=== PATIENT | female | born 1985 | race Two or more races ===

== ENCOUNTER → 2024-04-21 | Outpatient (CLI) | payer MEDICAID, SELFPAY ==
--- NOTE | 2024-04-21 15:00 | XR_ITS ---
Examination: MRI brain without intravenous contrast. Date and time of exam: April 21, 2024 at 1529 hours INDICATIONS: Daily syncopal episodes beginning November 16, 2023 dizziness paresthesias numbness in the head 5 months Technique: Multiple axial and sagittal images of the brain obtained. Siemens high-resolution 1.5 Gracie short bore scanners utilized. Sagittal sections, T1-weighted, TR 500, TE 14, are performed. Axial sections proton-density and T2-weighted have been obtained. Inversion recovery axial images, TR 9, 260, TE 111, TI 2500. Diffusion weighted images, axial sections, TR 4800, TE 128, B value 1000 Axial sections, ADC map, TR 4800, TE 128 Findings: Enlargement of the sella turcica is not present. The optic chiasm and infundibular are not remarkable. Prepontine and interpeduncular cisterns are not enlarged. There is no localized enlargement of the medulla or luke. Fourth ventricle and cerebellar tonsils appear normal in position. No subacute area of hemorrhage density is seen. Mass in the cerebellopontine angle region is not evident. Globes symmetrical. Orbital musculature including medial lateral rectus muscles do not exhibit abnormality. Diffusion-weighted images demonstrate no focus of restricted diffusion. Increased white matter signal 2 punctate foci increased signal in the right frontal parietal white matter and 1 day focus increased signal in the posterior left parietal white matter FLAIR image 16 Mass effect upon the ventricular system is not identified. Impression: Scattered punctate foci increased signal in the white matter, demyelinating disease pattern
== END | disposition home or self-care (01) ==
LOC: SMRI 14:36
PROVIDERS: PCP Internal Medicine; Referring Provider Internal Medicine; Visit Provider Internal Medicine
DX: R90.82 White matter disease, unspecified (principal)
CPT/HCPCS: 70551

== ENCOUNTER 2024-05-18 04:18 | Emergency (ER) | payer MEDICAID, SELFPAY ==
[2024-05-18 04:19] VITALS: BMI 28.3
--- NOTE | 2024-05-18 04:24 | EKG_ITS ---
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
--- NOTE | 2024-05-18 04:30 | PD.EDRME ---
Rapid Medical Screening Exam RME Arrival date/time: 05/18/24 04:18 Chief Complaint: General Adult/Misc Complain RME Narrative: 38yo female presents to the ED for complaints of palpitations and shortness of breath. Patient states she woke up having palpitations at 0340. She denies any dizziness, lightheadedness, chest pain, numbness, tingling, vision changes or any other associated symptoms.
[2024-05-18 04:32] VITALS: BP 103/80; PULSE 62; RESP 16; TEMP 36.7; O2SAT 99
--- NOTE | 2024-05-18 04:39 | PC.NURSE ---
Pt from home c/o awakening at 0340 with SOB, headache, and palpitations. Pt feels as though she is having a stroke. No hx of strokes. Pt states she is being worked up outpatient for MS.
[2024-05-18 05:17] LABS: Basophils % (Auto) 1 % (0-2.5); Eosinophils % (Auto) 1 % (0-10); Hematocrit 40.7 % (36.0-46.0); Hemoglobin 14.8 g/dL (12.0-16.0); Immature Granulocytes % (Auto) 0 % (0-0); Immature Granulocytes Auto 0.02 Thou/mm3 (0.00-0.00); Lymphocytes % (Auto) 37 % (10-50); Mean Corpuscular HGB Conc 36.4 g/dl (31.0-37.0); Mean Corpuscular Hemoglobin 32.5 pg (25.0-35.0); Mean Corpuscular Volume 90 fL (80-100); Monocytes # (Auto) 0.6 Thou/mm3 (0.0-0.8); Monocytes % (Auto) 11 % (0-12); Neutrophils # (Auto) 2.7 Thou/mm3 (1.8-7.7); Neutrophils % (Auto) 50 % (37-80); Nucleated Red Blood Cell % 0 /100 WBC (0); Platelet Count 247 Thou/mm3 (140-440); RDW Standard Deviation 38.6 fL (36.4-46.3); Red Blood Count 4.55 Miln/mm3 (4.00-5.20); White Blood Count 5.3 Thou/mm3 (3.6-11.0)
[2024-05-18 05:34] LABS: D-Dimer < 250 ng/mL (<600)
[2024-05-18 05:57] LABS: Alanine Aminotransferase 13 U/L (10-49); Albumin, Serum 5.1 gm/dL (3.5-5.0); Alkaline Phosphatase 74 U/L (46-116); Anion Gap 10 (7-16); Aspartate Amino Transferase 17 U/L (0-34); BUN/Creatinine Ratio 10 Ratio (12-20); Bilirubin,Total 0.7 mg/dL (0.3-1.2); Blood Urea Nitrogen 7 mg/dL (9-23); Calcium 9.9 mg/dL (8.3-10.6); Calcium (Corrected) 9.9 mg/dL (8.5-10.1); Chloride 103 mMol/L (98-107); Creatinine (Component) 0.7 mg/dL (0.6-1.3); Estimated Creatinine Clearance 94.3 mL/min (>60); Globulin 2.6 gm/dL (2.3-3.5); Glucose 90 mg/dL (74-106); Magnesium 2.1 mg/dL (1.6-2.6); Osmolality,Calculated 273 (275-295); Potassium 3.5 mMol/L (3.4-5.1); Sodium 138 mMol/L (136-145); Total Protein 7.7 gm/dL (5.7-8.2); Troponin I < 0.002 ng/mL (0.0-0.045); eGFR > 60 See Note
[2024-05-18 06:18] VITALS: BP 96/66; PULSE 61; RESP 17; TEMP 36.9; O2SAT 98
[2024-05-18 06:26] LABS: Collection Type, Urine Voided
[2024-05-18 06:44] LABS: Bilirubin,Urine Negative (Negative); Blood,Urine Negative (Negative); Clarity,Urine Clear (Clear/Hazy); Color,Urine Lt-Yellow (Lt Yel-Yel); Glucose, Urine Negative (Negative); Ketones,Urine 3+ (Negative); Leukocyte Esterase,Urine Negative (Negative); Nitrite,Urine Negative (Negative); Protein,Urine Negative (Neg - Trace); RBC,Urine 1 /hpf (0-3); Specific Gravity,Urine 1.013 (1.001-1.035); Squamous Epithelial Cell,Urine 8 /hpf (0-5); Urobilinogen,Urine Negative mg/dL (0.0-1.0); WBC,Urine 1 /hpf (0-5)
[2024-05-18 06:56] LABS: Amphetamine/Methamp Scrn,U Negative (Negative); Barbiturate Screen,Urine Negative (Negative); Benzodiazepines Screen,Urine Negative (Negative); Benzoylecgonine Screen, Ur Negative (Negative); Fentanyl Screen,Urine Negative (Negative); Opiate Screen,Urine Negative (Negative); THC Screen,Urine Negative (Negative)
[2024-05-18 08:16] VITALS: BP 105/67; PULSE 74; RESP 19; TEMP 36.9; O2SAT 98
--- NOTE | 2024-05-18 08:16 | PC.NURSE ---
Pt. here from home laying in bed in room 9, pt. states she feels better and all her symptoms that she felt this morning at home are gone, pt. states her heart beats fast sometimes and she is being tested for MS by her primary Doctor. Pt. asking for MS medication because she states her [facility] won't give it to her. Pt. denies any pain or SOB at this time. No s/s of distress.
--- NOTE | 2024-05-18 08:59 | EDNOTE_ITS ---
ED Arrhythmia Palp. RME/HPI General Chief Complaint: General Adult/Misc Complain Stated Complaint: POSS STROKE Time Seen by Provider: 05/18/24 05:03 Arrival date/time: 05/18/24 04:18 RME / HPI RME / HPI narrative: 38yo female presents to the ED for complaints of palpitations and shortness of breath. Patient states she woke up having palpitations at 0340. She denies any dizziness, lightheadedness, chest pain, numbness, tingling, vision changes or any other associated symptoms. DR. DENAE PAGAN ED EVALUATION 38 year old female presents to the ED for evaluation of shortness of breath and palpitations beginning at 03:00 am today. States she woke up from sleep due to my heart was beating hard and during that time noted to feel short of breath. Additionally reported she felt her hearing was muffled and vision was blurry. Denied any LOC. Denies recent illness, fevers, chills, chest pain, cough, abdominal pain, n/v/d, or urinary symptoms. Denies any change in oral intake. [facility] 05/04/2024 Related Data Home Medications ?Medication ?Instructions ?Recorded ?Confirmed cholecalciferol (vitamin D3) 50 50 mcg PO QDAY 01/15/24 01/15/24 mcg (2,000 unit) capsule Allergies Allergy/AdvReac Type Severity Reaction Status Date / Time No Known Allergies Allergy Verified 01/16/24 08:07 Review of Systems Review of Systems Narrative Review of Systems: GEN: No fever, no chills, no weight loss EYES: No discharge, +blurred vision, no pain HEENT: +muffled hearing. No ear pain, no congestion, no sore throat PULM: +shortness of breath, no cough, no congestion CV: No chest pain, no dyspnea on exertion, +palpitations GI: No nausea, no vomiting, no diarrhea, no pain, no constipation : No frequency, no urgency and no dysuria MUSC/SKEL No joint pain, no back pain SKIN: No rash NEURO: No weakness, no headache Past Medical History Past Medical History NEUROLOGIC: Negative Neurological Disorders CARDIAC: Positive Cardiac Disorders and Hypercholesterolemia GASTROINTESTINAL: Positive Gastrointestinal Disorders, Gastrointestinal Bleed and Hemorrhoids GENITOURINARY: Negative Genitourinary Disorders or Renal Disease MUSCULOSKELETAL: Positive Musculoskeletal Disorders ENDOCRINE: Negative Endocrine Disorders HEMATOLOGIC: Negative Blood Disorders OTHER HISTORY: Positive Chicken Pox Surgical History SURGICAL: Positive Tubal Ligation and Section Social History SMOKING STATUS: Never smoker SUBSTANCE USE: does not use ED Exam Narrative Physical exam: GENERAL APPEARANCE: Well hydrated, well nourished, in no acute distress. VITALS: All vitals were reviewed and the pulse ox is 98% on room air which is normal according to my interpretation. HEENT: Normocephalic, atramatic, EOMI, EACs are patent. There is no bulge or retraction. Throat without erythema or exudate. Moist oromucosa. No jaundice NECK: Supple, no JVD or bruits. CARDIOVASCULAR: Heart regular without S3-S4 or murmur. No rubs or gallops. LUNGS/CHEST: Clear to auscultation bilaterally. No rales, rhonchi, or wheezing. Normal inspection. ABDOMEN: Soft, nontender, with normal bowel sounds. No pulsatile masses. No rebound, rigidity, or guarding. No incarcerated hernia. Normal inspection and palpation. EXTREMITIES: Normal inspection and palpation. No edema, clubbing, or cyanosis. Intact CSM SKIN: Warm and dry without rashes. Normal inspection. MUSCULOSKELETAL: Normal inspection. No gross deformity, full ROM all extremities NEURO: Alert and oriented x3. Cranial nerves II through XII grossly intact. There are no other motor or sensory deficits noted. PSYCHIATRIC: Normal mood and affect. No psychosis. Course Quality Measures none Orders Category Date Time Status EKG (ED ONLY) *Do not use* NOW Care 05/18/24 04:25 Completed Fingerstick [Bedside Blood Glucose] NOW Care 05/18/24 04:25 Active IV [Insert IV] STAT Care 05/18/24 04:30 Active EKG (ED Only) Stat Exams 05/18/24 04:24 Draft CBC Stat Lab 05/18/24 04:26 Completed CMP [Comprehensive Metabolic Panel] Stat Lab 05/18/24 04:26 Completed D-Dimer Stat Lab 05/18/24 04:26 Completed Drug Screen,Urine Stat Lab 05/18/24 06:21 Completed Mag [Magnesium] Stat Lab 05/18/24 04:26 Completed Troponin I Stat Lab 05/18/24 04:26 Completed Urinalysis Stat Lab 05/18/24 06:21 Completed Vital Signs Vital signs: Vital Signs Temperature 98.1 F 05/18/24 04:32 Pulse Rate 62 05/18/24 04:32 Respiratory Rate 16 05/18/24 04:32 Blood Pressure 103/80 05/18/24 04:32 Pulse Oximetry (%) 99 05/18/24 04:32 Oxygen Delivery Method Room Air 05/18/24 04:32 Arrhythmia/Palpitations MDM Narrative MDM Narrative:: Yisel Magallanes am scribing for and in the presence of Dr. Villegas. CBC is negative. CMP negative. Magnesium negative. Troponin negative. D- dimer negative. UA showing mild dehydration. U tox is negative. Twelve-lead EKG at 4:44 AM and interpreted by me: Sinus rhythm. Heart rate of 58. Normal axis. No ST elevation or depression. No PVC. No STEMI. Regular rate and rhythm. Patient neurological exam is normal. No neurological deficit. No focal finding. Speaking well. No facial droop. Therefore CT brain is not necessary. She did have a recent MRI of the brain that was done in April. Please see the report. According to the patient herself, she is to follow-up with a neurologist pending medical authorization Patient data External records reviewed:: [facility] previous records (I reviewed ED visit 01/16/2024) Clinical information provided by:: patient Social determinants that could affect healthcare access:: none Patient has the following chronic illnesses:: None reported How is presenting disease/condition affected by chronic disease/condition?: no chronic disease Evaluation data The following diagnostics were reviewed and interpreted by me:: lab results and EKG tracing(s) Lab and/or radiology exams considered but not ordered:: None Interpretation Summary: As noted above Medications / Prescriptions Medications or Prescriptions considered but not ordered:: None Medication administrations:: None Consultations Consultation(s) initiated? (list below): No Diagnosis Most likely diagnosis given after review of the tests above:: Palpitation Admission Indicated Admission indicated?: not indicated Admission Request Was there a request for admission?: No Disposition Plan Disposition Plan: Discharge Discharge Attestation Discharge Attestation: The patient and all family members were given an opportunity to ask questions and understood the discharge instructions. Discharge instructions specifically effects, indications for sooner follow up or return to the emergency department, and the expected course of current diagnosis. Patient condition: Stable Discharge Plan Plan Patient Disposition: HOME (Self Care) Disposition Comment: Stable for DC home Prescriptions/Referrals Prescriptions/Med Rec: No Action cholecalciferol (vitamin D3) 50 mcg (2,000 unit) capsule 50 mcg PO QDAY Referrals: Ligia Guan MD [Primary Care Provider] - In 1 week Problem List Clinical Impression: Palpitation Patient/Caregiver Discharge Instructions Education Materials: ED Palpitations Additional Instructions: Please follow-up with your medical doctor, for further evaluation and treatment and recheck in general in 3 days. Return to emergency department if any problem Print Language: Setswana Stand Alone Forms: Caroline Award Info., Patient Portal Info Letter
[2024-05-18 10:08] VITALS: BP 96/64; PULSE 72; RESP 18; TEMP 37; O2SAT 98
== END 2024-05-18 10:08 | disposition home or self-care (01) ==
PROVIDERS: Emergency Medicine; Emergency Provider Emergency Medicine; PCP Internal Medicine
DX: R00.2 Palpitations (principal); R06.02 Shortness of breath
CPT/HCPCS: 36415; 80053; 80307; 81001; 83735; 84484; 85025; 85379; 93005; 99283

== ENCOUNTER 2024-08-03 08:11 | Emergency (ER) | payer MEDICAID, SELFPAY ==
[2024-08-03 08:18] VITALS: BP 100/67; PULSE 69; RESP 19; TEMP 37; O2SAT 97; BMI 27.0
--- NOTE | 2024-08-03 08:26 | XR_ITS ---
Examination: PA lateral chest 2 views TECHNIQUE: Upright PA lateral chest 2 views Exam date and time: August 03, 2024 0844 hours INDICATIONS: Chest pain shortness of breath coughing beginning one week ago FINDINGS: Normal heart size Lungs are clear. The osseous structures are intact IMPRESSION: No active disease
--- NOTE | 2024-08-03 08:26 | EKG_ITS ---
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
--- NOTE | 2024-08-03 08:27 | PD.EDURI ---
Upper Respiratory Inf. RME/HPI General Chief Complaint: Shortness of Breath/Dyspnea Stated Complaint: LUNGS ARE HURTING, SOB, COUGHING X 1 WK Time Seen by Provider: 08/03/24 08:18 Arrival date/time: 08/03/24 08:11 RME / HPI RME / HPI Narrative: DR. IBRAHIM MAIN ED EVALUATION: This section includes all my notes and documentations, including HPI, PE, and ED course.? Michael Ibrahim MD HPI: 38 year old female presents to the Emergency Department with complaints of shortness of breath and a cough onset 1 week. Symptoms are moderate. Reports yellowish/greenish productive cough. And chest pain and back pain with coughing. No other complaints reported. ROS: All negative except as documented in HPI. Physical Exam: General:? Alert and oriented.? Hacking cough noted. Eyes:? Conjunctivae and lids clear. ENT:? No nasal congestion.? Pharynx normal. TM normal bilaterally. Neck:? Supple. Heart:? RRR. Lungs:? No respiratory distress.? Good air movement with bilateral rhonchi. Skin:? Warm and dry.? Neuro:? Alert and oriented X 3.? I reviewed all diagnostic test results. My interpretation of the EKG is?sinus rhythm with no acute ST?T changes. My interpretation of the chest x-ray is increased bronchial markings. COVID/influenza negative. At this point, diagnoses include Lower respiratory infection. Treatment here included prednisone and DuoNeb and two Tylenol #3. Significant improvement noted. Based on my best medical judgment, made decision no further evaluation or treatment indicated at this time.? Patient understands and agrees to the discharge instructions customized and printed, see below. Discharge instructions from Dr. Ibrahim: --Fortunately, there is no very serious condition, such as pneumothorax or heart attack. --No physical exertion for 3 days to help rest the lungs. ?No smoking or exposure to smoking or pets or dust or cold air. --Zithromax to kill the germs causing the bronchitis. --Prednisone to help decrease the swelling in the airways. --Albuterol 2 puffs every 4-6 hours for 24 hours to help keep the airways open. Then as needed for cough or shortness of breath. --See a private doctor next week for recheck, if not completely better. --Seek immediate medical care with worsening or with any concerns. Michael Ibrahim MD Related Data Home Medications ?Medication ?Instructions ?Recorded ?Confirmed cholecalciferol (vitamin D3) 50 50 mcg PO QDAY 01/15/24 01/15/24 mcg (2,000 unit) capsule Previous Rx's ?Medication ?Instructions ?Recorded albuterol sulfate 90 mcg/actuation 2 puff inhalation Q6H PRN 08/03/24 aerosol inhaler shortness of breath or wheezing #8.5 grams azithromycin 500 mg tablet 500 mg PO QDAY 3 days #3 tabs 08/03/24 (Zithromax TRI-MEGAN) prednisone 50 mg tablet 50 mg PO QDAY #3 tabs 08/03/24 Allergies Allergy/AdvReac Type Severity Reaction Status Date / Time No Known Allergies Allergy Verified 08/03/24 08:14 Course Quality Measures none Orders Category Date Time Status Bedside COVID-19 Antigen Test NOW Care 08/03/24 08:26 Active Bedside Influenza A&B Antigen Test NOW Care 08/03/24 08:26 Completed EKG (ED ONLY) *Do not use* NOW Care 08/03/24 08:26 Completed EKG (ED Only) Stat Exams 08/03/24 08:26 Draft XR chest 2V Stat Exams 08/03/24 08:26 Taken ACETAMINOPHEN w/COD 300-30 [Tylenol w/Cod #3] Med 08/03/24 08:26 Discontinued 2 tab PO X1 ONE Albuterol/Ipratr Rt Eneida [Duoneb Rt Eneida] Med 08/03/24 08:26 Discontinued 3 ml INH X1 ONE predniSONE Med 08/03/24 08:26 Discontinued 40 mg PO X1 ONE Vital Signs Vital signs: Vital Signs Temperature 98.6 F 08/03/24 08:18 Pulse Rate 69 08/03/24 08:18 Respiratory Rate 19 08/03/24 08:18 Blood Pressure 100/67 08/03/24 08:18 Pulse Oximetry (%) 97 08/03/24 08:18 Oxygen Delivery Method Room Air 08/03/24 08:18 Upper Respiratory Infection MDM Narrative MDM Narrative:: I, Shanta Au am scribing for and in the presence of Dr. Ibrahim. Patient data External records reviewed:: [facility] previous records (Reviewed last ED visit dated 05/18/24, discharged with the following: Palpitation) Clinical information provided by:: patient Social determinants that could affect healthcare access:: none Patient has the following chronic illnesses:: Denies any PMHx, surgeries, daily medications, or known allergies. How is presenting disease/condition affected by chronic disease/condition?: no chronic disease Evaluation data The following diagnostics were reviewed and interpreted by me:: lab results, radiology exam(s) and EKG tracing(s) (My interpretation of the EKG is: Sinus rhythm (85 bpm) with nonspecific ST-T changes. Michael Ibrahim MD) Lab and/or radiology exams considered but not ordered:: none Interpretation Summary: Low respiratory infection Medications / Prescriptions Medications or Prescriptions considered but not ordered:: none Medication administrations:: Medication Administration History Discontinued Medications Acetaminophen/Codeine Phosphate (Acetaminophen W/Cod 300-30 Tablet) 2 tab PO X1 ONE Stop: 08/03/24 08:27 Last Admin: 08/03/24 08:37 Dose: 2 tab Documented By: OA Albuterol/Ipratropium (Albuterol/Ipratropium (Duoneb) Rt Eneida 3 Ml Nebu) 3 ml INH X1 ONE Stop: 08/03/24 08:27 Last Admin: 08/03/24 08:48 Dose: 3 ml Documented By: RG Prednisone (Prednisone 20 Mg Tablet) 40 mg PO X1 ONE Stop: 08/03/24 08:27 Last Admin: 08/03/24 08:37 Dose: 40 mg Documented By: OA Prednisone and DuoNeb and two Tylenol #3 Consultations Consultation(s) initiated? (list below): No Diagnosis Upper Respiratory Differential Diagnosis: upper respiratory infection, viral infection, influenza and other (COVID) Most likely diagnosis given after review of the tests above:: Lower respiratory infection Admission Indicated Admission indicated?: not indicated Explain why admission is indicated or not indicated:: There is no indication for admission Admission Request Was there a request for admission?: No Disposition Plan Disposition Plan: Discharge Discharge Attestation Discharge Attestation: The patient and all family members were given an opportunity to ask questions and understood the discharge instructions. Discharge instructions specifically effects, indications for sooner follow up or return to the emergency department, and the expected course of current diagnosis. Patient condition: Stable Discharge Plan Plan Patient Disposition: HOME (Self Care) Prescriptions/Referrals Prescriptions/Med Rec: New prednisone 50 mg tablet 50 mg PO QDAY Qty: 3 0RF albuterol sulfate 90 mcg/actuation HFA aerosol inhaler 2 puff inhalation Q6H PRN (Reason: shortness of breath or wheezing) Qty: 8.5 0RF azithromycin [Zithromax TRI-MEGAN] 500 mg tablet 500 mg PO QDAY 3 Days Qty: 3 0RF No Action cholecalciferol (vitamin D3) 50 mcg (2,000 unit) capsule 50 mcg PO QDAY Referrals: Ligia Guan MD [Primary Care Provider] - In 1 week Problem List Clinical Impression: Lower respiratory infection Patient/Caregiver Discharge Instructions Discharge Activity: activity as tolerated Education Materials: ED Bronchitis with Wheezing (Adult) Additional Instructions: Discharge instructions from Dr. Ibrahim: --Fortunately, there is no very serious condition, such as pneumothorax or heart attack. --No physical exertion for 3 days to help rest the lungs. ?No smoking or exposure to smoking or pets or dust or cold air. --Zithromax to kill the germs causing the bronchitis. --Prednisone to help decrease the swelling in the airways. --Albuterol 2 puffs every 4-6 hours for 24 hours to help keep the airways open. Then as needed for cough or shortness of breath. --See a private doctor next week for recheck, if not completely better. --Seek immediate medical care with worsening or with any concerns. Print Language: Guinean Stand Alone Forms: Caroline Award Info., Patient Portal Info Letter
[2024-08-03] MEDS: ACETAMINOPHEN w/COD 300-30 TABLET 2 TAB PO (08:37)
[2024-08-03] MEDS: predniSONE 20 MG TABLET 40 MG PO (08:37)
[2024-08-03] MEDS: ALBUTEROL/IPRATROPIUM (Duoneb) RT SOL 3 ML NEBU INH (08:48)
[2024-08-03 08:49] VITALS: PULSE 69; RESP 14; O2SAT 99
== END 2024-08-03 10:37 | disposition home or self-care (01) ==
PROVIDERS: Emergency Provider Emergency Medicine; PCP Internal Medicine
DX: J22 Unspecified acute lower respiratory infection (principal)
CPT/HCPCS: 71046; 87400; 87811; 93005; 94640; 99283; A9270; J7512

== ENCOUNTER → 2024-09-20 | Outpatient (CLI) | payer MEDICAID, SELFPAY ==
--- NOTE | 2024-09-20 15:00 | XR_ITS ---
Examination: Pelvic ultrasound, transabdominal, complete Technique: Transabdominal ultrasound of the pelvis performed using grayscale imaging Date and time of exam: September 20, 2024 1523 hours INDICATIONS: Pelvic pain and vaginal bleeding beginning 10 months ago FINDINGS: Uterus 12.1 cm with benign cervical cyst Endometrial stripe 0.6 cm no uterine mass or intrauterine gestation Right ovary 3.1 cm arterial flow Left ovary 4.0 cm arterial flow IMPRESSION: No uterine mass or intrauterine gestation
== END | disposition home or self-care (01) ==
PROVIDERS: PCP Internal Medicine; Referring Provider Nurse Practitioner Family; Visit Provider Nurse Practitioner Family
DX: N83.201 Unspecified ovarian cyst, right side (principal)
CPT/HCPCS: 76856

== ENCOUNTER 2024-12-21 12:05 | Outpatient (RCR) | payer MEDICAID, SELFPAY ==
--- NOTE | 2024-12-21 12:30 | XR_ITS ---
Examination: KOFI, hepatobiliary radioisotope scan Gallbladder ejection fraction study. Date and time of exam: December 21, 2024 1249 hours INDICATIONS: Nausea vomiting upper abdominal pain 4 months loading Technique: 5.8 mCi of 99M Hepatolite administered. Serial imaging then obtained from immediate through 60 minutes. 1.4 mcg selective catheter Kinevac administered for gallbladder ejection fraction study. Findings: Radioisotope activity within the liver is reasonably homogenous. Gallbladder, common bile duct small bowel activity noted Impression: Gallbladder activity Abnormal gallbladder ejection fraction, 7%, normal greater than 35%
== END 2024-12-26 23:59 | disposition home or self-care (01) ==
LOC: SNUC 12:05
PROVIDERS: PCP Internal Medicine; Referring Provider Internal Medicine Gastroenterology; Visit Provider Internal Medicine Gastroenterology
DX: R11.2 Nausea with vomiting, unspecified (principal); R93.2 Abnormal findings on diagnostic imaging of liver and biliary tract
CPT/HCPCS: 78227; A9537; J2805

== ENCOUNTER → 2025-02-01 | Outpatient (CLI) | payer MEDICAID, SELFPAY ==
--- NOTE | 2025-02-01 09:15 | XR_ITS ---
Examination: Screening digital mammography, bilateral Computer aided detection 3-D breast Tomosynthesis, bilateral Date and time of exam: February 01, 2025 0923 hours, no priors Indication: Screening, patient states bilateral breast tenderness beginning one month ago Technique: Nonmagnified MLO, CC views of the breasts to been obtained, reconstructed from 3-D Tomosynthesis images. R2 computer aided detection program utilized for evaluation of suspicious masses and/or abnormal calcifications. 3-D Tomosynthesis images obtained. Findings: The breasts are heterogeneously dense, which may obscure small masses Benign calcifications. No suspicious masses Impression: BI-RADS category II: Benign Findings. Recommend 1 year follow-up mammogram. Given the patient's presentation, consider bilateral breast sonography follow-up
== END | disposition home or self-care (01) ==
LOC: CDIM 09:14
PROVIDERS: Referring Provider Obstetrics & Gynecology; Visit Provider Obstetrics & Gynecology
DX: Z12.31 Encounter for screening mammogram for malignant neoplasm of breast (principal); R92.323 Mammographic fibroglandular density, bilateral breasts; R92.1 Mammographic calcification found on diagnostic imaging of breast
CPT/HCPCS: 77063; 77067

== ENCOUNTER → 2025-02-09 | Outpatient (CLI) | payer MEDICAID, SELFPAY ==
--- NOTE | 2025-02-09 10:30 | XR_ITS ---
Examination: CT chest with intravenous contrast 2-D sagittal and coronal reconstructions Exam date and time: February 09, 2025 1054 hours INDICATIONS: Diagnosis solitary pulmonary nodule CTDI:vol (mGy) 11.6 DLP: (mGycm) 377 Technique: Multiple axial sections of the thorax have been obtained. Sections have been obtained, 3 mm slice thickness. Mediastinal and lung density settings have been obtained. Intravenous contrast administered, Isovue-370 60 cc. 2-D sagittal, coronal images obtained. Low dose protocols were performed. One or more of the following dose reduction techniques were used; automated exposure control, adjustment of the mA and/or KV according to patient size, use of iterative reconstruction technique. Findings: No thoracic aortic aneurysmal dilatation No pulmonary artery filling defects No paratracheal tracheobronchial or bronchopulmonary adenopathy 8mm pulmonary nodule right upper lobe image 127 4 mm pulmonary nodule lingular segment image 174 No lobar pneumonia or pulmonary edema Fatty infiltration throughout the liver No gallstones No pancreatic or adrenal mass IMPRESSION: 8mm pulmonary nodule right upper lobe, 4 mm pulmonary nodule lingular segment left upper lobe With this study as baseline, recommend 6 month follow-up CT chest without contrast to document stability of these nodules
== END | disposition home or self-care (01) ==
PROVIDERS: PCP Internal Medicine; Referring Provider Nurse Practitioner Family; Visit Provider Nurse Practitioner Family
DX: R91.8 Other nonspecific abnormal finding of lung field (principal)
CPT/HCPCS: 71260; A4649; Q9967

== ENCOUNTER 2025-05-22 22:16 | Emergency (ER) | payer MEDICAID, SELFPAY ==
[2025-05-22 22:17] VITALS: BMI 30.2
[2025-05-22 23:40] VITALS: BP 110/65; PULSE 71; RESP 18; TEMP 36.9; O2SAT 100
[2025-05-23 00:22] LABS: Basophils # (Auto) 0.0 Thou/mm3 (0.0-0.2); Basophils % (Auto) 0 % (0-2.5); Eosinophils # (Auto) 0.2 Thou/mm3 (0.0-0.5); Eosinophils % (Auto) 2 % (0-10); Hematocrit 36.6 % (36.0-46.0); Hemoglobin 12.4 g/dL (12.0-16.0); Immature Granulocytes Auto 0.02 Thou/mm3 (0.00-0.00); Lymphocytes # (Auto) 0.7 Thou/mm3 (1.0-4.8); Lymphocytes % (Auto) 10 % (10-50); Mean Corpuscular HGB Conc 33.9 g/dl (31.0-37.0); Mean Corpuscular Hemoglobin 31.5 pg (25.0-35.0); Mean Corpuscular Volume 93 fL (80-100); Monocytes # (Auto) 0.6 Thou/mm3 (0.0-0.8); Monocytes % (Auto) 9 % (0-12); Neutrophils # (Auto) 5.7 Thou/mm3 (1.8-7.7); Neutrophils % (Auto) 79 % (37-80); Nucleated Red Blood Cell # 0.00 Thou/mm3 (0.00-0.00); Nucleated Red Blood Cell % 0 /100 WBC (0); Platelet Count 191 Thou/mm3 (140-440); RDW Standard Deviation 41.6 fL (36.4-46.3); Red Blood Count 3.94 Miln/mm3 (4.00-5.20); White Blood Count 7.3 Thou/mm3 (3.6-11.0)
[2025-05-23 00:36] LABS: Alanine Aminotransferase 19 U/L (10-49); Albumin, Serum 4.5 gm/dL (3.5-5.0); Albumin/Globulin Ratio 1.8 (1.2-2.2); Alkaline Phosphatase 103 U/L (46-116); Anion Gap 9 (7-16); Aspartate Amino Transferase 26 U/L (0-34); BUN/Creatinine Ratio 16 Ratio (12-20); Bilirubin,Total 0.4 mg/dL (0.3-1.2); Blood Urea Nitrogen 11 mg/dL (9-23); Calcium 8.7 mg/dL (8.3-10.6); Calcium (Corrected) 8.7 mg/dL (8.5-10.1); Carbon Dioxide 27.0 mMol/L (20.0-31.0); Chloride 105 mMol/L (98-107); Creatinine (Component) 0.7 mg/dL (0.6-1.3); Estimated Creatinine Clearance 96.4 mL/min (>60); Globulin 2.5 gm/dL (2.3-3.5); Glucose 104 mg/dL (74-106); Lipase 38 U/L (12-53); Osmolality,Calculated 280 (275-295); Potassium 4.0 mMol/L (3.4-5.1); Sodium 141 mMol/L (136-145); Total Protein 7.0 gm/dL (5.7-8.2); eGFR > 60 See Note
[2025-05-23 00:44] LABS: Collection Type, Urine Clean Catch
[2025-05-23 00:48] LABS: Bilirubin,Urine Negative (Negative); Blood,Urine 1+ (Negative); Clarity,Urine Clear (Clear/Hazy); Color,Urine Lt-Yellow (Lt Yel-Yel); Glucose, Urine Negative (Negative); Ketones,Urine Negative (Negative); Leukocyte Esterase,Urine Negative (Negative); Nitrite,Urine Negative (Negative); PH,Urine 7.5 (5.0-7.0); Protein,Urine Negative (Neg - Trace); RBC,Urine 1 /hpf (0-3); Specific Gravity,Urine 1.011 (1.001-1.035); Squamous Epithelial Cell,Urine 2 /hpf (0-5); Urobilinogen,Urine Negative mg/dL (0.0-1.0); WBC,Urine 1 /hpf (0-5)
[2025-05-23 00:49] LABS: HCG Qualitative,Urine Negative
--- NOTE | 2025-05-23 01:04 | XR_ITS ---
Examination: Abdomen sonogram, Limited Date and time of exam: May 23, 2025, 0109 hours INDICATIONS: Abdominal pain with nausea vomiting diarrhea today Technique: Real-time messina scale transabdominal sonographic images of the upper abdomen obtained. Findings: Normal gallbladder Normal common bile duct 0.3 cm Pancreatic head 2.8 cm Liver 13.2 cm smooth contour Normal hepatopetal portal venous flow Patent IVC IMPRESSION: Normal gallbladder Normal common bile duct
--- NOTE | 2025-05-23 02:16 | PRELIM_ITS ---
Gallbladder ultrasound. May 23, 2025 0109 hours Clinical history: Abdomen pain. No prior study is available for comparison. Findings: The visualized liver measures 13.2 cm and is normal in echogenicity. There is no intrahepatic biliary duct dilatation. The main portal vein is patent and demonstrates hepatopetal flow. The hepatic veins and inferior vena cava are patent. No gallbladder calculus, sludge, wall thickening or pericholecystic fluid is identified. Crocker sign is not commented upon by the technologist at the time of interpretation. The common duct is normal in caliber at 3 mm. No free fluid is demonstrated on the submitted images. The pancreas is unremarkable to the extent visualized. The inferior vena cava is unremarkable to the extent visualized. Impression: No obvious abnormality. Report Electronically Signed By: Augusto Carlson 05/23/2025 2:15:13 AM [EST]
--- NOTE | 2025-05-23 02:47 | PD.EDRME ---
Rapid Medical Screening Exam RME Arrival date/time: 05/22/25 22:16 This is a case of 39-year-old female who came in in the emergency room due to both upper abdominal pain with nausea vomiting worsening of the symptoms this patient decided to start consulted in the emergency room Chief Complaint: Abdominal Pain Time Seen by Provider: 05/22/25 22:19 Vital signs: Vital Signs Temperature 98.4 F 05/22/25 23:40 Pulse Rate 71 05/22/25 23:40 Respiratory Rate 18 05/22/25 23:40 Blood Pressure 110/65 05/22/25 23:40 Pulse Oximetry (%) 100 05/22/25 23:40 Oxygen Delivery Method Room Air 05/22/25 23:40 Exam: Mild tenderness on both upper abdomen no guarding no rebound no rigididity Clinical Impression: Abdominal pain
--- NOTE | 2025-05-23 03:38 | PD.EDABDPN ---
ED Abdominal Pain RME/HPI General Chief Complaint: Abdominal Pain Stated complaint: ABDOMINAL PAIN, DIARRHEA AND VOMITING Time seen by provider: 05/22/25 22:19 Arrival date/time: 05/22/25 22:16 This is a case of 39-year-old female with no medical history came in in the emergency room due to abdominal pain mostly on the upper associated with diarrhea loose stool none watery nonbloody none mucoid with 2 episode of nonprojectile vomiting today worsening of the symptoms this patient decided to sought consult here in the emergency room Limitations: no limitations RME / HPI RME / HPI narrative: 05/22/25 22:16 This is a case of 39-year-old female who came in in the emergency room due to both upper abdominal pain with nausea vomiting worsening of the symptoms this patient decided to start consulted in the emergency room Exam: Mild tenderness on both upper abdomen no guarding no rebound no rigididity Impression: Abdominal pain Related Data Home Medications ?Medication ?Instructions ?Recorded ?Confirmed cholecalciferol (vitamin D3) 50 50 mcg PO QDAY 01/15/24 01/15/24 mcg (2,000 unit) capsule Previous Rx's ?Medication ?Instructions ?Recorded albuterol sulfate 90 mcg/actuation 2 puff inhalation Q6H PRN 08/03/24 aerosol inhaler shortness of breath or wheezing #8.5 grams prednisone 50 mg tablet 50 mg PO QDAY #3 tabs 08/03/24 dicyclomine 20 mg tablet 20 mg PO TID PRN abdominal pain 05/23/25 #20 tabs famotidine 20 mg tablet (Pepcid) 20 mg PO BID 30 days #60 tabs 05/23/25 ondansetron 4 mg disintegrating 4 mg PO Q8H #20 tabs 05/23/25 tablet Allergies Allergy/AdvReac Type Severity Reaction Status Date / Time No Known Allergies Allergy Verified 08/03/24 08:14 Review of Systems Review of Systems Systems Reviewed: All systems reviewed, normal except as documented Constitutional Constitutional: Reports system reviewed and no additional complaints, except as documented and Reports as per HPI Cardiovascular Cardiovascular: Reports system reviewed and no additional complaints, except as documented and Reports as per HPI Respiratory Respiratory: Reports system reviewed and no additional complaints, except as documented and Reports as per HPI Gastrointestinal Gastrointestinal: Reports system reviewed and no additional complaints, except as documented and Reports as per HPI Musculoskeletal Musculoskeletal: Reports system reviewed and no additional complaints, except as documented and Reports as per HPI Neurologic Neurologic: Reports system reviewed and no additional complaints, except as documented and Reports as per HPI Past Medical History Past Medical History NEUROLOGIC: Negative Neurological Disorders, Cerebrovascular Accident, Alzheimer's Disease or Seizures CARDIAC: Positive Cardiac Disorders and Hypercholesterolemia; Negative Myocardial Infarction or Congestive Heart Failure RESPIRATORY: Negative Chronic Obstructive Pulmonary Disease (COPD) or Emphysema GASTROINTESTINAL: Positive Gastrointestinal Disorders, Gastrointestinal Bleed and Hemorrhoids; Negative Liver Cancer GENITOURINARY: Negative Genitourinary Disorders or Renal Disease MUSCULOSKELETAL: Positive Musculoskeletal Disorders; Negative Muscular Dystrophy ENT: Negative Blind or Deafness ENDOCRINE: Negative Endocrine Disorders, Diabetes Mellitus Type 1 or Diabetes Mellitus Type 2 HEMATOLOGIC: Negative Blood Disorders OTHER HISTORY: Positive Chicken Pox; Negative Hospitalization, Autoimmune Disease, Down Syndrome, Developmental Delay, Falls, Blood Transfusions, Blood Transfusion Reaction or Anesthesia Reactions Surgical History SURGICAL: Positive Tubal Ligation and Section Social History SMOKING STATUS: Never smoker SUBSTANCE USE: does not use ED Exam General Limitations: Present no limitations General appearance: Present alert, in no apparent distress and other (Patient is awake alert oriented not in distress nontoxic looking well-hydrated well nourihsed) Head Head exam: Present atraumatic, normocephalic and normal inspection Eye Eye exam: Present normal appearance, PERRL and EOMI ENT ENT exam: Present normal exam, normal oropharynx and mucous membranes moist Neck Neck exam: Present normal inspection, full ROM and trachea midline Chest Chest inspection: Present normal inspection and symmetric chest wall rise Respiratory Respiratory exam: Present normal lung sounds bilaterally; Absent respiratory distress, wheezes, stridor, accessory muscle use or prolonged expiratory phase Cardiovascular Cardiovascular exam: Present regular rate, normal rhythm and normal heart sounds; Absent bradycardia, tachycardia, irregular rhythm, systolic murmur or diastolic murmur Abdominal Exam Abdominal exam: Present soft, tenderness (Mild tenderness epigastric area no guarding no CVA tenderness) and normal bowel sounds; Absent distention, guarding, rebound, rigidity, diminished bowel sounds, hyperactive bowel sounds, hypoactive bowel sounds, organomegaly, psoas sign, obturator sign, Crocker's sign, Rovsing's sign, tenderness at McBurney's Point or hernia Abdominal tenderness: Present epigastrium and mild Extremities Exam Extremities exam: Present normal inspection and full ROM Back Exam Back exam: Present normal inspection and full ROM Neurological Exam Neurological exam: Present alert, oriented X3, CN II-XII intact, normal gait and reflexes normal; Absent motor sensory deficit Psychiatric Psychiatric exam: Present normal affect and normal mood Skin Skin exam: Present warm, dry, intact, normal color and other (Excellent skin turgor) Course Quality Measures none Orders Category Date Time Status US gall bladder Stat Exams 05/23/25 01:04 Taken CBC Stat Lab 05/22/25 23:58 Completed Comprehensive Metabolic Panel Stat Lab 05/22/25 23:58 Completed HCG Qualitative,Urine Stat Lab 05/23/25 00:29 Completed Lipase Stat Lab 05/22/25 23:58 Completed Urinalysis Stat Lab 05/23/25 00:29 Completed Dicyclomine Inj [Bentyl Inj] Med 05/23/25 03:37 Discontinued 10 mg IM X1 ONE Famotidine [Pepcid] Med 05/23/25 03:37 Discontinued 40 mg PO X1 ONE Ondansetron Odt [Zofran Odt] Med 05/23/25 03:37 Discontinued 4 mg PO X1 ONE Sodium Chloride 0.9% 1000 ml [Ns] 1,000 ml Med 05/23/25 03:38 Ordered IV 999 mls/hr Vital Signs Vital signs: Vital Signs Temperature 98.4 F 05/22/25 23:40 Pulse Rate 71 05/22/25 23:40 Respiratory Rate 18 05/22/25 23:40 Blood Pressure 110/65 05/22/25 23:40 Pulse Oximetry (%) 100 05/22/25 23:40 Oxygen Delivery Method Room Air 05/22/25 23:40 Oxygen saturation is 100% in room air normal Abdominal Pain MDM MDM Narrative MDM Narrative:: This is a case of 39-year-old female with no medical history came in in the emergency room due to abdominal pain mostly on the upper associated with diarrhea loose stool none watery nonbloody none mucoid with 2 episode of nonprojectile vomiting today worsening of the symptoms this patient decided to sought consult here in the emergency room physical examination patient is awake alert oriented not in distress nontoxic looking well-hydrated well-nourished abdominal exam noted mild tenderness on epigastric area but no guarding no rebound no rigidity negative psoas negative straight and negative Rovsing's negative Trudy's negative Crocker sign negative CVA tenderness patient has excellent skin turgor no signs and symptoms of sepsis dehydration of acute abdomen blood test showed no leukocytosis no anemia kidney and liver function is normal no electrolyte imbalance urinalysis is normal ultrasound of the gallbladder is also normal based on my physical examination and history patient symptoms suggestive of gastritis versus viral gastroenteritis patient was given Bentyl for abdominal pain Zofran Pepcid for nausea and vomiting and a bolus of normal saline after giving treatment patient condition markedly improved abdominal axis pain is resolved patient will follow-up with PCP in 2 days for reevaluation and to be referred to maintenance machinist for gastritis for any worsening symptoms or any emergent concern return precaution in the ER is advsied Patient was discharged with comfortable condition walking with stable gait. Patient verbalized no further complains explained diagnosis and answered patient question. Patient is comfortable with the proposed management plan including the need to follow up with his/her primary care physician and any specialist if applicable Discussed patient for any urgent condition or worsening sx, He/She needed to go to emergency room immediately or call 911. Patient acknowledge the responsibility to follow up as instructed and to monitor her/his symptoms. For any persistence of the symptoms for more than 3-5 days return precaution advised. Discussed the result of the test and was given printed discharge instruction Patient data External records reviewed:: [facility] previous records Clinical information provided by:: patient Social determinants that could affect healthcare access:: none Patient has the following chronic illnesses:: None How is presenting disease/condition affected by chronic disease/condition?: no chronic disease Evaluation data The following diagnostics were reviewed and interpreted by me:: lab results and radiology exam(s) Lab and/or radiology exams considered but not ordered:: Reviewed Interpretation Summary: Reviewed Medications / Prescriptions Medications or Prescriptions considered but not ordered:: Given Medication administrations:: Medication Administration History Sodium Chloride (Ns) 1,000 mls @ 999 mls/hr IV .Q1H1M ONE Stop: 05/23/25 04:38 Discontinued Medications Dicyclomine HCl (Dicyclomine Inj 10 Mg/Ml 2ml Vial) 10 mg IM X1 ONE Stop: 05/23/25 03:38 Famotidine (Famotidine 20 Mg Tablet) 40 mg PO X1 ONE Stop: 05/23/25 03:38 Ondansetron HCl (Ondansetron Odt 4 Mg Tabrap) 4 mg PO X1 ONE; Protocol Stop: 05/23/25 03:38 Given Consultations Consultation(s) initiated? (list below): No Diagnosis Differential diagnosis abdominal pain: abdominal pain, gastroenteritis, pancreatitis and other (Cholelithiasis gastritis) Most likely diagnosis given after review of the tests above:: Gastritis Admission Indicated Admission indicated?: not indicated Explain why admission is indicated or not indicated:: Not indicated Admission Request Was there a request for admission?: No Disposition Plan Disposition Plan: Discharge Discharge Attestation Discharge Attestation: The patient and all family members were given an opportunity to ask questions and understood the discharge instructions. Discharge instructions specifically effects, indications for sooner follow up or return to the emergency department, and the expected course of current diagnosis. Patient condition: Stable Discharge Plan Plan Patient Disposition: HOME (Self Care) Patient condition on transfer: Stable Prescriptions/Referrals Prescriptions/Med Rec: New dicyclomine 20 mg tablet 20 mg PO TID PRN (Reason: abdominal pain) Qty: 20 0RF famotidine [Pepcid] 20 mg tablet 20 mg PO BID 30 Days Qty: 60 0RF ondansetron 4 mg tablet,disintegrating 4 mg PO Q8H Qty: 20 0RF No Action cholecalciferol (vitamin D3) 50 mcg (2,000 unit) capsule 50 mcg PO QDAY prednisone 50 mg tablet 50 mg PO QDAY Qty: 3 0RF albuterol sulfate 90 mcg/actuation HFA aerosol inhaler 2 puff inhalation Q6H PRN (Reason: shortness of breath or wheezing) Qty: 8.5 0RF Referrals: No Primary/Family,Physician [Primary Care Provider] - In 1 week Problem List Clinical Impression: Abdominal pain, Vomiting and diarrhea, Gastroenteritis, Gastritis Patient/Caregiver Discharge Instructions Education Materials: Abdominal Pain, ED Gastritis (Adult), ED Gastroenteritis, Noninfectious, ED Vomiting and Diarrhea ... Additional Instructions: Follow-up with your primary care physician in 2 days for reevaluation worsening symptoms or any emergent concern call 911 or go to the nearest emergency room take your medication as directed increase water intake keep hydrated Pedialyte Gatorade for every bouts of vomiting and or diarrhea avoid skipping of meals avoid fatty fried high cholesterol food avoid alcohol soda coffee avoid spicy follow-up with your primary care physician to be referred to maintenance machinist for possible gastritis and for possible EGD Print Language: [place] Stand Alone Forms: Caroline Award Info., Patient Portal Info Letter PA/PORTFOLIO ARCHITECT Supervising Physician PA/PORTFOLIO ARCHITECT Supervising Physician: Dr. Bertrand
== END 2025-05-23 04:20 | disposition home or self-care (01) ==
PROVIDERS: Nurse Practitioner Family; Emergency Provider Emergency Medicine
DX: K52.9 Noninfective gastroenteritis and colitis, unspecified (principal); K29.70 Gastritis, unspecified, without bleeding
CPT/HCPCS: 36415; 76705; 80053; 81001; 81025; 83690; 85025; 99283